=== PATIENT | male | born 1975 | race Caucasian/White ===

== ENCOUNTER 2019-11-19 13:14 | Emergency (ER) | payer BC, OTHER ==
[~2019-11-19] VITALS: Ht 177.8 cm; Wt 93.0 kg
[2019-11-19] MEDS ORDERED: LABETALOL HCL 5 MG/ML 20ML VIAL IV STA (13:28)
[2019-11-19] MEDS ORDERED: CLONIDINE HCL 0.1 MG TAB PO ONE (13:30)
[2019-11-19] MEDS ORDERED: CLONIDINE HCL 0.1 MG TAB ONE (13:33)
--- NOTE | 2019-11-19 13:42 | Diagnostic Imaging Report ---
EXAMINATION: CXR 2 VIEW - HOPD INDICATION: Chest pain COMPARISON: None FINDINGS: LINES/TUBES:EKG leads overlie the chest. LUNGS:The lungs are well-inflated. No focal consolidation or pulmonary edema. PLEURA:No pleural effusion or pneumothorax. MEDIASTINUM:The cardiomediastinal silhouette appears normal in size and shape. BONES/SOFT TISSUES:No acute osseous injury. Old healed left rib fracture. ABDOMEN:No free air under the diaphragm. IMPRESSION: No focal pneumonia or pulmonary edema. Signed by: Major Peres MD on 11/19/2019 1:39 PM
[2019-11-19 14:03] VITALS: BP 144/89
== END 2019-11-19 14:14 | disposition home or self-care (01) ==
LOC: FSED 13:14
DX: R07.89 Other chest pain (principal); I10 Essential (primary) hypertension; K21.0 Gastro-esophageal reflux disease with esophagitis; F32.9 Major depressive disorder, single episode, unspecified
CPT/HCPCS: 71046; 80053; 82553; 84484; 85025; 93005; 99284; J3490